=== PATIENT | male | born 1970 | race African-American/Black ===

== ENCOUNTER 2020-10-21 15:33 | Emergency (ER) | payer OTHER ==
[2020-10-21] MEDS ORDERED: Ketorolac Tromethamine 30 MG/ML VIAL ONE ×2 (16:27→17:58)
== END 2020-10-21 16:57 | disposition home or self-care (01) ==
LOC: CSHERS 15:33
DX: S39.012A Strain of muscle, fascia and tendon of lower back, initial encounter (principal); S16.1XXA Strain of muscle, fascia and tendon at neck level, initial encounter; V49.49XA Driver injured in collision with other motor vehicles in traffic accident, initial encounter; Y92.411 Interstate highway as the place of occurrence of the external cause
CPT/HCPCS: 96372; 99283; J1885